=== PATIENT | female | born 1990 | race African-American/Black ===

== ENCOUNTER 2019-07-22 16:18 | Emergency (ER) | payer OTHER ==
[~2019-07-22] VITALS: Ht 165.1 cm; Wt 73.0 kg
[2019-07-22 17:51] VITALS: BP 118/70
== END 2019-07-22 17:50 | disposition home or self-care (01) ==
LOC: ER 16:18
DX: S80.862A Insect bite (nonvenomous), left lower leg, initial encounter (principal); S80.861A Insect bite (nonvenomous), right lower leg, initial encounter; L08.9 Local infection of the skin and subcutaneous tissue, unspecified; R03.0 Elevated blood-pressure reading, without diagnosis of hypertension; W57.XXXA Bitten or stung by nonvenomous insect and other nonvenomous arthropods, initial encounter; Y93.89 Activity, other specified; Y92.89 Other specified places as the place of occurrence of the external cause; Y99.8 Other external cause status
CPT/HCPCS: 99282

== ENCOUNTER 2021-12-18 21:32 | Emergency (ER) | payer OTHER ==
[~2021-12-18] VITALS: Ht 165.1 cm; Wt 86.0 kg
[2021-12-18] MEDS ORDERED: LORAZEPAM 1MG TABLET PO ONE (22:15)
[2021-12-18 22:54] LABS: BASOPHILS % 0.6 % (0.0-2.0); EOSINOPHILS % 0.4 % (0.0-5.0); HEMATOCRIT. 38.6 % (36.0-48.0); HEMOGLOBIN. 12.6 g/dL (12.0-16.0); LYMPHOCYTES % 21.2 % (20.0-50.0); MEAN CORPUSCULAR HEMOGLOBIN 29.2 pg (28.0-32.0); MEAN CORPUSCULAR VOLUME 89.3 fL (81.0-99.0); MEAN PLATELET VOLUME 8.4 fl (7.4-10.4); NEUTROPHILS % 70.8 % (40.0-76.0); PLATELET 221 x1000/uL (130-400); RED BLOOD CELL COUNT 4.32 mill/uL (4.2-5.4); RED CELL DISTRIBUTION WIDTH 13.1 % (11.6-14.6)
[2021-12-18 23:02] LABS: CHLORIDE 108 mEq/L (98-107)
[2021-12-18 23:05] LABS: CLARITY URINE CLEAR (CLEAR); COLOR URINE YELLOW (YELLOW); KETONES URINE TRACE (NEGATIVE); LEUKOCYTE ESTERASE URINE NEGATIVE (NEGATIVE); NITRITE URINE NEGATIVE (NEGATIVE); OCCULT BLOOD URINE NEGATIVE (NEGATIVE); PROTEIN URINE NEGATIVE (NEGATIVE); SPECIFIC GRAVITY URINE 1.008 (1.005-1.030); UROBILINOGEN URINE 0.2 E.U./dL (0.2-1.0)
[2021-12-18] MEDS ORDERED: LORA-249 MT ×2 (23:38→23:57)
[2021-12-19 00:01] VITALS: BP 150/80
== END 2021-12-19 00:03 | disposition home or self-care (01) ==
LOC: ER 21:32
DX: R06.02 Shortness of breath (principal); F41.1 Generalized anxiety disorder; Z63.4 Disappearance and death of family member; J45.909 Unspecified asthma, uncomplicated
CPT/HCPCS: 36415; 71045; 80053; 81003; 85025; 93005; 99285

== ENCOUNTER 2023-10-20 19:07 | Emergency (ER) | payer MEDICAID, OTHER ==
[~2023-10-20] VITALS: Ht 162.6 cm; Wt 96.0 kg
[~2023-10-20 19:07] MED LIST: LORA-249 MT
[2023-10-20 19:19] VITALS: BP 131/91; O2SAT 98
[2023-10-20 23:50] LABS: BASOPHILS % 0.7 % (0.0-2.0); EOSINOPHILS % 0.9 % (0.0-5.0); HEMOGLOBIN. 12.7 g/dL (12.0-16.0); LYMPHOCYTES % 30.1 % (20.0-50.0); MEAN CORPUSCULAR HEMOGLOBIN 28.9 pg (28.0-32.0); MEAN CORPUSCULAR HGB CONC 32.5 g/dL (31.0-37.0); MEAN CORPUSCULAR VOLUME 88.9 fL (81.0-99.0); MEAN PLATELET VOLUME 8.5 fl (7.4-10.4); NEUTROPHILS % 62.3 % (40.0-76.0); PLATELET 302 x1000/uL (130-400); RED BLOOD CELL COUNT 4.39 mill/uL (4.2-5.4); RED CELL DISTRIBUTION WIDTH 13.9 % (11.6-14.6); WHITE BLOOD COUNT 10.7 x1000/uL (4.5-11.0)
[2023-10-21] MEDS ORDERED: MECLIZINE 12.5MG TABLET PO ONE
[2023-10-21] MEDS ORDERED: MECLIZINE 12.5MG TABLET PO NR (00:15)
[2023-10-21 00:21] LABS: ALANINE AMINOTRANSFERASE 17 IU/L (10-49); ALBUMIN 4.3 g/dL (3.2-4.8); ASPARTATE AMINOTRANSFERASE 19 IU/L (<34); BILIRUBIN TOTAL 0.4 mg/dL (0.1-1.0); CALCIUM 9.2 mg/dL (8.7-10.4); CARBON DIOXIDE 25 mEq/L (21-32); CHLORIDE 107 mEq/L (98-107); CREATININE 0.6 mg/dL (0.6-1.0); GLUCOSE 100 mg/dL (70-105); POTASSIUM 3.6 mEq/L (3.5-5.1); SODIUM 140 mEq/L (136-145); UREA NITROGEN BLOOD 8 mg/dL (9-23)
[2023-10-21 01:47] VITALS: PULSE 75; RESP 18; TEMP 98.1
[2023-10-21 05:39] LABS: CLARITY URINE CLOUDY (CLEAR); COLOR URINE DARK YELLOW (YELLOW)
[2023-10-21 05:41] LABS: GLUCOSE URINE NEGATIVE (NEGATIVE); KETONES URINE NEGATIVE (NEGATIVE); PROTEIN URINE TRACE (NEGATIVE); SPECIFIC GRAVITY URINE 1.047 (1.005-1.030)
[2023-10-21 05:42] LABS: LEUKOCYTE ESTERASE URINE NEGATIVE (NEGATIVE); NITRITE URINE NEGATIVE (NEGATIVE); OCCULT BLOOD URINE NEGATIVE (NEGATIVE)
[2023-10-21 07:41] LABS: SQUAMOUS EPITHELIAL CELL URINE 1+ /lpf (RARE/1+)
[2023-10-21 07:43] LABS: AMORPHOUS SEDIMENT URINE 1+ /lpf; BACTERIA URINE NONE SEEN; RBC URINE 0-2 /hpf (0-2); WBC URINE 0-2 /hpf (0-2)
== END 2023-10-21 01:48 | disposition home or self-care (01) ==
LOC: ER 19:07
DX: R51.9 Headache, unspecified (principal); R42 Dizziness and giddiness; J45.909 Unspecified asthma, uncomplicated
CPT/HCPCS: 99283; 80053; 85025; 36415; 81003; J8597

== ENCOUNTER 2024-06-01 20:11 | Emergency (ER) | payer MEDICAID, OTHER ==
[~2024-06-01] VITALS: Ht 165.1 cm; Wt 100.0 kg
[2024-06-01 20:14] VITALS: BP 138/84; PULSE 99; RESP 16; TEMP 98.2; O2SAT 99
[2024-06-01] MEDS ORDERED: ACETAMINOPHEN 325MG TABLET PO ONE (21:00)
== END 2024-06-01 21:51 | disposition home or self-care (01) ==
LOC: ER 20:11
DX: R51.9 Headache, unspecified (principal); J45.909 Unspecified asthma, uncomplicated
CPT/HCPCS: 99281

== ENCOUNTER 2024-09-08 22:15 | Emergency (ER) | payer MEDICAID ==
[~2024-09-08] VITALS: Ht 165.1 cm; Wt 91.0 kg
[2024-09-08 22:18] VITALS: O2SAT 98
[2024-09-08 22:46] VITALS: BP 133/82; PULSE 94; RESP 18; TEMP 98.4; O2SAT 100
== END 2024-09-08 23:35 | disposition left against medical advice (07) ==
LOC: ER 22:15
DX: J34.1 Cyst and mucocele of nose and nasal sinus (principal); R42 Dizziness and giddiness; R51.9 Headache, unspecified; J45.909 Unspecified asthma, uncomplicated
CPT/HCPCS: 99281

== ENCOUNTER 2024-11-04 16:17 | Emergency (ER) | payer MEDICAID ==
[~2024-11-04] VITALS: Ht 170.2 cm; Wt 109.0 kg
[2024-11-04 16:41] VITALS: O2SAT 100
[2024-11-04 17:59] LABS: BASOPHILS % 0.9 % (0.0-2.0); HEMATOCRIT. 33.6 % (36.0-48.0); HEMOGLOBIN. 10.9 g/dL (12.0-16.0); LYMPHOCYTES % 29.1 % (20.0-50.0); MEAN CORPUSCULAR HEMOGLOBIN 26.9 pg (28.0-32.0); MEAN CORPUSCULAR HGB CONC 32.3 g/dL (31.0-37.0); MEAN CORPUSCULAR VOLUME 83.4 fL (81.0-99.0); MEAN PLATELET VOLUME 8.6 fl (7.4-10.4); PLATELET 271 x1000/uL (130-400); RED BLOOD CELL COUNT 4.03 mill/uL (4.2-5.4); RED CELL DISTRIBUTION WIDTH 15.5 % (11.6-14.6)
[2024-11-04 18:03] LABS: CARBON DIOXIDE 25 mEq/L (21-32); CHLORIDE 105 mEq/L (98-107); SODIUM 138 mEq/L (136-145)
[2024-11-04 18:04] LABS: CALCIUM 9.3 mg/dL (8.7-10.4)
[2024-11-04 18:05] LABS: INR 0.9; PROTHROMBIN TIME 10.6 sec (9.6-11.0)
[2024-11-04 18:07] LABS: HCG SCREEN NEGATIVE
[2024-11-04 18:09] LABS: CREATININE 0.8 mg/dL (0.6-1.0); GLUCOSE 94 mg/dL (70-105); UREA NITROGEN BLOOD 10 mg/dL (9-23)
[2024-11-04 18:10] LABS: ALANINE AMINOTRANSFERASE 12 IU/L (10-49)
[2024-11-04 18:11] LABS: ALBUMIN 4.2 g/dL (3.2-4.8); ASPARTATE AMINOTRANSFERASE 15 IU/L (<34); BILIRUBIN TOTAL 0.3 mg/dL (0.1-1.0); PROTEIN TOTAL 7.4 g/dL (6.0-8.3)
[2024-11-04 18:19] LABS: BILIRUBIN DIRECT < 0.1 mg/dL (<=3.0); ETHANOL BLOOD < 10 mg/dL (<10); TROPONIN I HIGH SENSITIVITY < 4 ng/L (3.0-34)
[2024-11-04 21:06] VITALS: BP 141/68; PULSE 67; RESP 16; TEMP 36.66960; O2SAT 98
== END 2024-11-04 21:09 | disposition home or self-care (01) ==
LOC: ER 16:17
DX: R53.1 Weakness (principal); R20.0 Anesthesia of skin; J45.909 Unspecified asthma, uncomplicated
CPT/HCPCS: 36415; 71045; 80048; 80076; 80320; 82962; 84484; 84703; 85025; 93005; 99285; G0480

== ENCOUNTER 2024-12-17 17:42 | Emergency (ER) | payer MEDICAID ==
[~2024-12-17] VITALS: Ht 165.1 cm; Wt 120.2 kg
[2024-12-17 17:47] VITALS: O2SAT 98
[2024-12-17 21:35] VITALS: BP 122/77; PULSE 92; RESP 16; TEMP 36.7; O2SAT 99
== END 2024-12-17 21:40 | disposition home or self-care (01) ==
LOC: ER 17:42
DX: R51.9 Headache, unspecified (principal); J45.909 Unspecified asthma, uncomplicated
CPT/HCPCS: 99283; 99284

== ENCOUNTER 2024-12-31 22:02 | Emergency (ER) | payer MEDICAID ==
[~2024-12-31] VITALS: Ht 165.1 cm; Wt 109.0 kg
[2024-12-31 22:11] VITALS: O2SAT 100
[2024-12-31 22:34] VITALS: BP 131/89; PULSE 80; RESP 16; TEMP 37; O2SAT 100
== END 2025-01-01 02:42 | disposition left against medical advice (07) ==
LOC: ER 22:08
DX: R51.9 Headache, unspecified (principal); Z53.21 Procedure and treatment not carried out due to patient leaving prior to being seen by health care provider

== ENCOUNTER 2025-01-14 17:13 | Emergency (ER) | payer MEDICAID ==
[~2025-01-14] VITALS: Ht 167.6 cm; Wt 108.8 kg
[2025-01-14 17:17] VITALS: O2SAT 98
[2025-01-14 18:32] LABS: CHLORIDE 103 mEq/L (98-107); POTASSIUM 4.2 mEq/L (3.5-5.1); SODIUM 139 mEq/L (136-145)
[2025-01-14 18:33] LABS: CARBON DIOXIDE 29 mEq/L (21-32)
[2025-01-14 18:34] LABS: EOSINOPHILS % 2.7 % (0.0-5.0); HEMATOCRIT. 33.3 % (36.0-48.0); HEMOGLOBIN. 10.8 g/dL (12.0-16.0); LYMPHOCYTES % 36.7 % (20.0-50.0); MEAN CORPUSCULAR HEMOGLOBIN 27.1 pg (28.0-32.0); MEAN CORPUSCULAR HGB CONC 32.5 g/dL (31.0-37.0); MEAN CORPUSCULAR VOLUME 83.5 fL (81.0-99.0); MEAN PLATELET VOLUME 8.8 fl (7.4-10.4); MONOCYTES % 7.4 % (2.0-8.0); NEUTROPHILS % 52.2 % (40.0-76.0); PLATELET 292 x1000/uL (130-400); RED BLOOD CELL COUNT 3.99 mill/uL (4.2-5.4); RED CELL DISTRIBUTION WIDTH 14.6 % (11.6-14.6); WHITE BLOOD COUNT 7.6 x1000/uL (4.5-11.0)
[2025-01-14 18:38] LABS: GLUCOSE 103 mg/dL (70-105); UREA NITROGEN BLOOD 11 mg/dL (9-23)
[2025-01-14 18:55] LABS: HCG SCREEN NEGATIVE
[2025-01-14 19:16] LABS: TROPONIN I HIGH SENSITIVITY < 4 ng/L (3.0-34)
[2025-01-14] MEDS ORDERED: IBUP-2028 MT (19:22)
[2025-01-14 19:45] VITALS: BP 108/66; PULSE 75; RESP 20; TEMP 36.9; O2SAT 100
== END 2025-01-14 19:45 | disposition home or self-care (01) ==
LOC: ER 17:13
DX: R07.89 Other chest pain (principal); J45.909 Unspecified asthma, uncomplicated
CPT/HCPCS: 36415; 71045; 80048; 84484; 84703; 85025; 87070; 87430; 93005; 99285

== ENCOUNTER 2025-08-17 19:04 | Emergency (ER) | payer MEDICAID ==
[~2025-08-17] VITALS: Ht 165.1 cm; Wt 113.4 kg
[~2025-08-17 19:04] MED LIST changes: +IBUP-2028 MT
[2025-08-17 19:15] VITALS: TEMP 37.1
[2025-08-17] MEDS: IPRATROPIUM BROMIDE (0.02%) 0.5MG/2.5ML NEB HHN ONE (19:51)
[2025-08-17] MEDS: DEXAMETHASONE 4MG TABLET PO ONE (19:51)
[2025-08-17] MEDS: ALBUTEROL (0.083%) 2.5MG/3ML NEB HHN ONE (19:51)
[2025-08-17 19:56] VITALS: PULSE 74; RESP 18; O2SAT 99
[2025-08-17 21:45] VITALS: BP 156/88; PULSE 70; RESP 18; O2SAT 98
== END 2025-08-17 21:47 | disposition home or self-care (01) ==
LOC: ER 19:04
DX: J45.909 Unspecified asthma, uncomplicated (principal); Z79.899 Other long term (current) drug therapy
CPT/HCPCS: 71045; 94640; 93005; 99283; J8540; Z7610 ×3; 94070; 94664; 98960